=== PATIENT | female | born 1995 | race Caucasian/White ===

== ENCOUNTER 2016-06-21 19:28 | Emergency (ER) | payer OTHER ==
[2016-10-03] MEDS ORDERED: PROTONIX 40 MG40 M1 PO (15:10)
[2016-10-03] MEDS ORDERED: SERTRALINE HCL50 MG PO (15:11)
[2016-10-03] MEDS ORDERED: OCELLA 3 MG-0.1 EACH PO (15:11)
[2016-10-03] MEDS ORDERED: IBUPROFEN800 MG PO (15:12)
[2016-10-03] MEDS ORDERED: ANTACID PO (15:14)
[2016-10-03] MEDS ORDERED: LIDO PO (15:14)
[2016-10-03] MEDS ORDERED: [UNRECOGNIZED DRUG - OTHER] PO (15:14)
[2016-10-04] MEDS ORDERED: ZOFRAN4 MG PO (13:47)
[2016-10-04] MEDS ORDERED: CLEOCIN HCL300 MG PO (13:48)
[2016-10-04] MEDS ORDERED: IBUPROFEN800 MG PO ×2 (13:50→13:51)
[2016-10-04] MEDS ORDERED: VITAMIN C 500500 MG PO (13:50)
[2016-10-04] MEDS ORDERED: NORCO 10-325 T1 EACH PO (13:51)
== END 2016-06-21 20:30 | disposition home or self-care (01) ==
LOC: ER1 19:28
DX: Z46.89 Encounter for fitting and adjustment of other specified devices (principal); Z90.49 Acquired absence of other specified parts of digestive tract; Z88.0 Allergy status to penicillin; Z88.1 Allergy status to other antibiotic agents
CPT/HCPCS: 99282

== ENCOUNTER 2016-08-21 19:20 | Emergency (ER) | payer OTHER ==
[2016-08-22 01:21] LABS: RED BLOOD COUNT 4.81 M/UL (4.00-5.10); WHITE BLOOD COUNT 5.3 K/UL (4.5-11.0)
[2016-08-22 01:41] LABS: BUN/CREATININE RATIO 21 (0-10)
[2016-10-03] MEDS ORDERED: PROTONIX 40 MG40 M1 PO (15:10)
[2016-10-03] MEDS ORDERED: SERTRALINE HCL50 MG PO (15:11)
[2016-10-03] MEDS ORDERED: OCELLA 3 MG-0.1 EACH PO (15:11)
[2016-10-03] MEDS ORDERED: IBUPROFEN800 MG PO (15:12)
[2016-10-03] MEDS ORDERED: LIDO PO (15:14)
[2016-10-03] MEDS ORDERED: ANTACID PO (15:14)
[2016-10-03] MEDS ORDERED: [UNRECOGNIZED DRUG - OTHER] PO (15:14)
[2016-10-04] MEDS ORDERED: ZOFRAN4 MG PO (13:47)
[2016-10-04] MEDS ORDERED: CLEOCIN HCL300 MG PO (13:48)
[2016-10-04] MEDS ORDERED: IBUPROFEN800 MG PO ×2 (13:50→13:51)
[2016-10-04] MEDS ORDERED: VITAMIN C 500500 MG PO (13:50)
[2016-10-04] MEDS ORDERED: NORCO 10-325 T1 EACH PO (13:51)
== END 2016-08-22 02:58 | disposition home or self-care (01) ==
LOC: ER1 19:20
PROVIDERS: Family Medicine
DX: B34.9 Viral infection, unspecified (principal); Z88.0 Allergy status to penicillin; Z88.1 Allergy status to other antibiotic agents
CPT/HCPCS: 36415; 80053; 81001; 84703; 85025; 96374; 99284; J2405; J7030

== ENCOUNTER → 2016-08-22 | Outpatient (CLI) | payer OTHER ==
[~2016-08-22] MED LIST: ANTACID PO; CLEOCIN HCL300 MG PO; IBUPROFEN800 MG PO; LIDO PO; NORCO 10-325 T1 EACH PO; OCELLA 3 MG-0.1 EACH PO; PROTONIX 40 MG40 M1 PO; SERTRALINE HCL50 MG PO; VITAMIN C 500500 MG PO; ZOFRAN4 MG PO; [UNRECOGNIZED DRUG - OTHER] PO
== END ==
LOC: CT 16:00
DX: R10.31 Right lower quadrant pain (principal); R19.7 Diarrhea, unspecified; R30.0 Dysuria; R31.9 Hematuria, unspecified; K58.9 Irritable bowel syndrome, unspecified; R11.2 Nausea with vomiting, unspecified; N83.201 Unspecified ovarian cyst, right side; R93.3 Abnormal findings on diagnostic imaging of other parts of digestive tract
CPT/HCPCS: J7050; Q9962

== ENCOUNTER 2016-08-23 09:54 | Emergency (ER) | payer OTHER ==
[2016-08-23 10:25] LABS: HEMOGLOBIN 13.1 gm/dl (12.3-15.3); RED BLOOD COUNT 4.79 M/UL (4.00-5.10); WHITE BLOOD COUNT 5.9 K/UL (4.5-11.0)
[2016-08-23 10:44] LABS: BUN/CREATININE RATIO 17 (0-10)
[2016-08-23 11:16] LABS: ASTROVIRUS Not Detected (Negative); CAMPYLOBACTER Not Detected (Negative); CLOSTRIDIUM DIFFICILE TOX A/B Not Detected (Negative); CRYPTOSPORIDIUM Not Detected (Negative); E.COLI 0157 Not Detected (Negative); ENTAMOEBA HISTOLYTICA Not Detected (Negative); ENTEROAGGREGATIVE E.COLI (EAEC Not Detected (Negative); ENTEROPATHOGENIC E.COLI (EPEC) Not Detected (Negative); ENTEROTOXIGENIC E.COLI (ETEC) Not Detected (Negative); GIARDIA LAMBLIA Not Detected (Negative); NOROVIRUS GI/GII Not Detected (Negative); PLESIOMONAS SHIGELLOIDES Not Detected (Negative); ROTOVIRUS A Not Detected (Negative); SALMONELLA Not Detected (Negative); SAPOVIRUS Not Detected (Negative); SHIG/ENTEROINVAS.ECOLI (EIEC) Not Detected (Negative); SHIGA-LIK TOX.PRO.E.COLI (STEC Not Detected (Negative); VIBRIO Not Detected (Negative); VIBRIO CHOLERAE Not Detected (Negative); YERSINIA ENTEROCOLITICA Not Detected (Negative)
[2016-08-23 13:02] LABS: ADENOVIRUS F 40/41 DETECTED (Negative)
[2016-10-03] MEDS ORDERED: PROTONIX 40 MG40 M1 PO (15:10)
[2016-10-03] MEDS ORDERED: SERTRALINE HCL50 MG PO (15:11)
[2016-10-03] MEDS ORDERED: OCELLA 3 MG-0.1 EACH PO (15:11)
[2016-10-03] MEDS ORDERED: IBUPROFEN800 MG PO (15:12)
[2016-10-03] MEDS ORDERED: ANTACID PO (15:14)
[2016-10-03] MEDS ORDERED: [UNRECOGNIZED DRUG - OTHER] PO (15:14)
[2016-10-03] MEDS ORDERED: LIDO PO (15:14)
[2016-10-04] MEDS ORDERED: ZOFRAN4 MG PO (13:47)
[2016-10-04] MEDS ORDERED: CLEOCIN HCL300 MG PO (13:48)
[2016-10-04] MEDS ORDERED: IBUPROFEN800 MG PO ×2 (13:50→13:51)
[2016-10-04] MEDS ORDERED: VITAMIN C 500500 MG PO (13:50)
[2016-10-04] MEDS ORDERED: NORCO 10-325 T1 EACH PO (13:51)
== END 2016-08-23 13:50 | disposition home or self-care (01) ==
LOC: ER1 09:54
PROVIDERS: Emergency Medicine
DX: R10.11 Right upper quadrant pain (principal); R10.31 Right lower quadrant pain; R11.10 Vomiting, unspecified; R19.7 Diarrhea, unspecified; K52.9 Noninfective gastroenteritis and colitis, unspecified; B97.0 Adenovirus as the cause of diseases classified elsewhere; Z90.49 Acquired absence of other specified parts of digestive tract; Z88.0 Allergy status to penicillin; Z88.1 Allergy status to other antibiotic agents
CPT/HCPCS: 36415; 80053; 81001; 82150; 83690; 84703; 85025; 87507; 89055; 96374; 96375; 96376; 99284; J2270; J2405; J7030

== ENCOUNTER 2016-08-31 20:28 | Emergency (ER) | payer OTHER ==
[2016-08-31 22:36] LABS: HEMOGLOBIN 12.3 gm/dl (12.3-15.3); RED BLOOD COUNT 4.55 M/UL (4.00-5.10); WHITE BLOOD COUNT 6.6 K/UL (4.5-11.0)
[2016-08-31 23:00] LABS: BUN/CREATININE RATIO 16 (0-10)
[2016-10-03] MEDS ORDERED: PROTONIX 40 MG40 M1 PO (15:10)
[2016-10-03] MEDS ORDERED: SERTRALINE HCL50 MG PO (15:11)
[2016-10-03] MEDS ORDERED: OCELLA 3 MG-0.1 EACH PO (15:11)
[2016-10-03] MEDS ORDERED: IBUPROFEN800 MG PO (15:12)
[2016-10-03] MEDS ORDERED: ANTACID PO (15:14)
[2016-10-03] MEDS ORDERED: LIDO PO (15:14)
[2016-10-03] MEDS ORDERED: [UNRECOGNIZED DRUG - OTHER] PO (15:14)
[2016-10-04] MEDS ORDERED: ZOFRAN4 MG PO (13:47)
[2016-10-04] MEDS ORDERED: CLEOCIN HCL300 MG PO (13:48)
[2016-10-04] MEDS ORDERED: IBUPROFEN800 MG PO ×2 (13:50→13:51)
[2016-10-04] MEDS ORDERED: VITAMIN C 500500 MG PO (13:50)
[2016-10-04] MEDS ORDERED: NORCO 10-325 T1 EACH PO (13:51)
== END 2016-09-01 01:08 | disposition home or self-care (01) ==
LOC: ER1 20:28
PROVIDERS: Student in an Organized Health Care Education/Training Program
DX: K62.5 Hemorrhage of anus and rectum (principal); R10.31 Right lower quadrant pain; R11.0 Nausea; Z90.49 Acquired absence of other specified parts of digestive tract; Z88.0 Allergy status to penicillin; Z88.1 Allergy status to other antibiotic agents
CPT/HCPCS: 36415; 80053; 81001; 82272; 83605; 83690; 84703; 85025; 87086; 96374; 96375; 99284; J2270; J2405; J7050; Q9962

== ENCOUNTER 2016-09-23 00:45 | Emergency (ER) | payer OTHER ==
[2016-10-03] MEDS ORDERED: PROTONIX 40 MG40 M1 PO (15:10)
[2016-10-03] MEDS ORDERED: OCELLA 3 MG-0.1 EACH PO (15:11)
[2016-10-03] MEDS ORDERED: SERTRALINE HCL50 MG PO (15:11)
[2016-10-03] MEDS ORDERED: IBUPROFEN800 MG PO (15:12)
[2016-10-03] MEDS ORDERED: ANTACID PO (15:14)
[2016-10-03] MEDS ORDERED: LIDO PO (15:14)
[2016-10-03] MEDS ORDERED: [UNRECOGNIZED DRUG - OTHER] PO (15:14)
[2016-10-04] MEDS ORDERED: ZOFRAN4 MG PO (13:47)
[2016-10-04] MEDS ORDERED: CLEOCIN HCL300 MG PO (13:48)
[2016-10-04] MEDS ORDERED: IBUPROFEN800 MG PO ×2 (13:50→13:51)
[2016-10-04] MEDS ORDERED: VITAMIN C 500500 MG PO (13:50)
[2016-10-04] MEDS ORDERED: NORCO 10-325 T1 EACH PO (13:51)
== END 2016-09-23 05:00 | disposition home or self-care (01) ==
LOC: ER1 00:45
DX: F41.1 Generalized anxiety disorder (principal); R13.10 Dysphagia, unspecified; K21.9 Gastro-esophageal reflux disease without esophagitis; Z88.0 Allergy status to penicillin; Z88.1 Allergy status to other antibiotic agents; Z90.49 Acquired absence of other specified parts of digestive tract; Z79.899 Other long term (current) drug therapy
CPT/HCPCS: 71020; 93005; 99283

== ENCOUNTER → 2016-09-27 | Outpatient (CLI) | payer OTHER ==
[2016-09-27 09:39] LABS: HEMOGLOBIN 11.8 gm/dl (12.3-15.3); RED BLOOD COUNT 4.41 M/UL (4.00-5.10); WHITE BLOOD COUNT 7.4 K/UL (4.5-11.0)
[2016-09-27 09:53] LABS: BUN/CREATININE RATIO 16 (0-10)
== END ==
LOC: OPSV2 08:51
PROVIDERS: Podiatrist Foot & Ankle Surgery
DX: Z01.812 Encounter for preprocedural laboratory examination (principal); M25.371 Other instability, right ankle; Z88.1 Allergy status to other antibiotic agents; Z88.0 Allergy status to penicillin
CPT/HCPCS: 36415; 80048; 85027

== ENCOUNTER 2020-08-20 19:58 | Emergency (ER) | payer OTHER ==
[~2020-08-20 19:58] MED LIST changes: +Magic Mouth Wash; +PREDNISONE 50 M50 MG PO
[2020-08-20 20:55] LABS: RED BLOOD COUNT 4.48 M/UL (4.00-5.10); WHITE BLOOD COUNT 7.7 K/UL (4.5-11.0)
[2020-08-20 21:17] LABS: BUN/CREATININE RATIO 15 (0-10)
[2020-08-20] MEDS ORDERED: CYCLOBENZAPRINE5 MG PO (23:20)
== END 2020-08-20 23:48 | disposition home or self-care (01) ==
LOC: ER1 19:58
PROVIDERS: Student in an Organized Health Care Education/Training Program
DX: S39.012A Strain of muscle, fascia and tendon of lower back, initial encounter (principal); R10.9 Unspecified abdominal pain; K21.9 Gastro-esophageal reflux disease without esophagitis; Z90.49 Acquired absence of other specified parts of digestive tract; Z88.0 Allergy status to penicillin; Z88.1 Allergy status to other antibiotic agents; Z79.899 Other long term (current) drug therapy; X50.0XXA Overexertion from strenuous movement or load, initial encounter
CPT/HCPCS: 80053; 81001; 82550; 82553; 83605; 83690; 84703; 85025; 96374; 96375; 99284; J1885; J2270; J2405; Q9967

== ENCOUNTER 2021-10-15 04:02 | Emergency (ER) | payer OTHER ==
[~2021-10-15] VITALS: Ht 160 cm; Wt 78.5 kg
[~2021-10-15 04:02] MED LIST changes: +CYCLOBENZAPRINE5 MG PO
[2021-10-15 05:24] LABS: HEMOGLOBIN 11.7 gm/dl (12.3-15.3); RED BLOOD COUNT 4.44 M/UL (4.00-5.10); WHITE BLOOD COUNT 13.6 K/UL (4.5-11.0)
[2021-10-15 05:42] LABS: BUN/CREATININE RATIO 15 (0-10)
[2021-10-15] MEDS ORDERED: DROSPIRENONE-E1 EACH PO (14:43)
[2021-10-15] MEDS ORDERED: PHENAZOPYRIDIN200 MG PO (14:43)
[2021-10-15] MEDS ORDERED: CLARITIN10 MG PO (14:44)
[2021-10-15] MEDS ORDERED: FLONASE ALLER15.8 ML (14:44)
[2021-10-17 03:11] LABS: CHLAMYDIA TRACHOMATIS, NAA Negative (Negative); NEISSERIA GONORRHOEAE, NAA Negative (Negative)
== END 2021-10-15 14:39 | disposition admitted as inpatient to this hospital (09) ==
LOC: ER1 04:02
PROVIDERS: Obstetrics & Gynecology; Physician Assistant; Student in an Organized Health Care Education/Training Program
PROC: 0U9M0ZZ Drainage of Vulva, Open Approach (ICD-10-PCS; principal; 2021-10-15 15:37)
DX: N76.4 Abscess of vulva (principal); Z88.0 Allergy status to penicillin; Z88.1 Allergy status to other antibiotic agents
CPT/HCPCS: 80053; 81001; 83605; 83690; 84703; 85025; 87040; 87070; 87086; 87205; 87210; 96365; 96366; 96375; 96376; 99284; J1100; J1885; J1956; J2001; J2250; J2270; J2405; J2704; J3010; J3370; J7030; Q9967